=== PATIENT | female | born 2000 | race Caucasian/White ===

== ENCOUNTER 2018-02-19 15:36 | Emergency (ER) | payer BC ==
[2018-02-19] MEDS ORDERED: NA CHLORIDE 0.9% 1,000 ML ONE (16:37)
[2018-02-19] MEDS ORDERED: KETOROLAC 30 MG/ML INJ ONE (16:37)
[2018-02-19 17:54] LABS: Absolute Lymphocytes (CBC) 1.5 K/uL (0.7-4.9); Absolute Monocytes 0.7 K/uL (0.1-1.3); Absolute Neutrophil 13.4 K/uL (1.8-8.0); Basophils % 0.4 % (0-1.3); Eosinophils % 0.3 % (0-4.4); Hematocrit 41.3 % (36.0-45.0); Lymphocytes % 9.7 % (15.3-44.8); MCH 26.4 pg (27.0-35.0); MCV 79.8 fL (80-100); MPV 8.8 fL (7.6-11.3); Monocytes % 4.1 % (3.3-12.3); RBC Red Blood Cell Count 5.18 M/uL (3.86-4.86)
[2018-02-19 17:57] LABS: Urine Blood NEGATIVE (NEG); Urine Glucose NEGATIVE (NEG); Urine Protein NEGATIVE (NEG); Urine pH 7.5 (5.0-7.0)
[2018-02-19 18:01] LABS: Urine Bacteria <20 /HPF (<20); Urine Culture Reflex Order NOT NEEDED; Urine Mucus 1+ /HPF (NONE SEEN); Urine RBC <5 /HPF (NONE SEEN)
[2018-02-19 18:13] LABS: ALT/SGPT 60 U/L (12-78); AST/SGOT 30 U/L (15-37); Albumin 4.3 g/dL (3.4-5.0); Alkaline Phosphatase 87 U/L (45-117); Amylase Level 51 U/L (25-115); BUN Blood Urea Nitrogen 12 mg/dL (7-18); Bicarbonate 26 mmol/L (21-32); Bilirubin Direct 0.1 mg/dL (0-0.2); Bilirubin Total 0.4 mg/dL (0.2-1.0); Glucose Level 95 mg/dL (74-106); Lipase 111 U/L (73-393); Potassium 3.5 mmol/L (3.5-5.1); Protein, Total 8.1 g/dL (6.4-8.2); Sodium Level 139 mmol/L (136-145)
--- NOTE | 2018-02-19 18:14 | RAD REPORT ---
EXAM DESCRIPTION: US - Transvaginal Study Probe - 02/19/2018 6:06 pm CLINICAL HISTORY: lower abdomen/pelvic pain Pelvic pain. COMPARISON: No comparisons FINDINGS: The uterus is normal in size, shape and echotexture. The uterus measures 7.0 x 5.1 x 4.0 c m. The fundal endometrium appears to contain an IUD device although is somewhat poorly visualized. Endom etrial stripe is normal in thickness. Both ovaries are normal in size, shape and echotexture. The right ovary measures 3.9 x 3.5 x 2.2 cm. The left ovary measures 2.8 x 2.9 x 1.1 cm. No ovarian or parovarian lesions. No adnexal masses. Normal Doppler blood flow was demonstrated to both ovaries. Mild pelvic free fluid. IMPRESSION: IUD is suspected to be within the fundal endometrium although it is somewhat poorly visu alized.Otherwise, negative study.
--- NOTE | 2018-02-19 19:03 | RAD REPORT ---
EXAM DESCRIPTION: CTAbdomen Pelvis W Contrast - 02/19/2018 6:39 pm CLINICAL HISTORY: Abdominal pain. lower abdomen pain COMPARISON: No comparisons TECHNIQUE: Biphasic CT imaging of the abdomen and pelvis was performed with 100 ml non-ionic IV cont rast. All CT scans are performed using dose optimization technique as appropriate and may include automated exposure control or mA/KV adjustment according to patient size. FINDINGS: The lung bases are clear. The liver, spleen, pancreas, adrenal glands and kidneys are within normal limits. No bowel obstruction, free air, free fluid or abscess. The appendix is normal. No evidence of signi ficant lymphadenopathy. The uterus appears to contain an IUD in the fundal region. Mild pelvic free fluid is seen. Gynecologi c structures appear somewhat boggy/edematous. IMPRESSION: Mild pelvic free fluid is seen with a somewhat boggy appearance to the gynecologic struc tures. Clinical correlation for possible pelvic inflammation/ infection is advised.
--- NOTE | 2018-02-19 19:18 | ER ---
Nurse's Notes [facility] Name: Marisol Urias Age: 17 yrs Sex: Female : 2000 Arrival Date: 02/19/2018 Time: 15:37 Bed 30 Private MD: Gareth Terrell V Diagnosis: Female pelvic inflammatory disease, unspecified Presentation: 02/19 16:06 Transition of care: patient was not received from another setting of care. Onset of hb symptoms was February 19, 2018. 16:06 Method Of Arrival: Ambulatory hb 16:06 Presenting complaint: Patient states: Abdominal cramping and pelvic pain 8/10 after hb intercourse this morning. Pt also reports intermittent abdominal cramping ever since she had her IUD placed 1 month ago. Denies vaginal bleeding. Risk Assessment: Do you want to hurt yourself or someone else? Patient reports no desire to harm self or others. Initial Sepsis Screen: Does the patient meet any 2 criteria? No. Patient's initial sepsis screen is negative. Does the patient have a suspected source of infection? No. Patient's initial sepsis screen is negative. Care prior to arrival: None. 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 - Social history:: Smoking status: Patient/guardian denies using tobacco. - Ebola Screening: : No symptoms or risks identified at this time. Screenin:12 Abuse screen: Denies threats or abuse. Denies injuries from another. Nutritional hb screening: No deficits noted. Tuberculosis screening: No symptoms or risk factors identified. Fall Risk None identified. Assessment: 16:30 General: Appears in no apparent distress. comfortable, well groomed, Behavior is calm, ph cooperative, appropriate for age, Denies fever, feeling ill. Pain: Complains of pain in suprapubic area, right lower quadrant and left lower quadrant. Neuro: Level of Consciousness is awake, alert, obeys commands, Oriented to person, place, time, situation. Cardiovascular: Capillary refill < 3 seconds Patient's skin is warm and dry. Respiratory: Airway is patent Respiratory effort is even, unlabored, Respiratory pattern is regular, symmetrical. GI: Abdomen is round non-distended, Bowel sounds present X 4 quads. Reports lower abdominal pain, Patient currently denies diarrhea, nausea, vomiting. : Reports cramping, in bilateral lower quadrant(s) Denies burning with urination, discharge, vaginal bleeding. Derm: Skin is intact, is healthy with good turgor, Skin is pink, warm \T\ dry. Musculoskeletal: Circulation, motion, and sensation intact. Range of motion: intact in all extremities. 17:20 Reassessment: Patient appears in no apparent distress at this time. Patient and/or ph family updated on plan of care and expected duration. Pain level reassessed. Patient is alert, oriented x 3, equal unlabored respirations, skin warm/dry/pink. ERP at bedside for pelvic exam, pt tolerated well. 18:35 Reassessment: Patient appears in no apparent distress at this time. Patient and/or ph family updated on plan of care and expected duration. Pain level reassessed. Patient is alert, oriented x 3, equal unlabored respirations, skin warm/dry/pink. Pt resting quietly, reports that pain has improved to 6/10, awaiting CT results. Vital Signs: 16:11 BP 125 / 83; Pulse 94; Resp 16; Temp 97.8; Pulse Ox 100% on R/A; Pain 8/10; hb 17:30 BP 119 / 70; Pulse 87; Resp 18; Pulse Ox 99% on R/A; Pain 8/10; ph 18:30 BP 122 / 68; Pulse 86; Resp 18; Pulse Ox 99% on R/A; Pain 6/10; ph 19:36 BP 120 / 70; Pulse 87; Resp 17; Pulse Ox 99% ; kr2 ED Course: 15:37 Patient arrived in ED. sb2 15:38 Gareth Terrell MD is Private Physician. sb2 16:01 Teodoro Joseph PA is PHCP. cp 16:01 Phoenix Sun MD is Attending Physician. cp 16:11 Triage completed. hb 16:11 Arm band placed on right wrist. hb 16:12 Patient has correct armband on for positive identification. Bed in low position. Call light in reach. Side rails up X 1. 16:24 Ximena Ayala, RN is Primary Nurse. ph 17:20 Assist provider with pelvic exam: Set up pelvic tray. Performed by Teodoro HILLMAN ph Specimens sent to lab. Patient tolerated well. 17:30 Inserted saline lock: 20 gauge in right antecubital area, using aseptic technique. ph Blood collected. 18:07 US Transvaginal Study (Probe) In Process Unspecified. EDMS 18:32 Patient moved to MD via wheelchair. jj2 18:39 CT Abd/Pelvis - W/Contrast In Process Unspecified. EDMS 19:35 IV discontinued, intact, bleeding controlled, No redness/swelling at site. Pressure kr2 dressing applied. Administered Medications: 17:35 Drug: NS 0.9% 1000 ml Route: IV; Rate: 1 bolus; Site: right antecubital; ph 18:58 Follow up: Response: No adverse reaction; IV Status: Completed infusion ph 17:35 Drug: TORadol 30 mg Route: IVP; Site: right antecubital; ph 18:58 Follow up: Response: No adverse reaction; Pain is decreased ph 19:29 Drug: Rocephin 1 grams Route: IV; Rate: calculated rate; Site: right antecubital; kr2 19:35 Follow up: Response: No adverse reaction; IV Status: Completed infusion kr2 19:29 Drug: Zithromax 1 grams Route: PO; kr2 19:35 Follow up: Response: Medication administered at discharge. kr2 Outcome: 19:18 Discharge ordered by MD. cp 19:34 Discharged to home ambulatory, with family. kr2 19:34 Condition: good 19:34 Discharge instructions given to patient, family, Instructed on discharge instructions, follow up and referral plans. medication usage, Demonstrated understanding of instructions, follow-up care, medications, Prescriptions given X 4. 19:37 Patient left the ED. kr2 Signatures: Dispatcher [employer] EDMS Antonoi Lagunas jXimena Cheney, RN RN ph Teodoro Joseph PA PA cp Tamra Hernandez RN RN Ishan Santana Karey, RN RN kr2 Aletha Kearns sb2 Corrections: (The following items were deleted from the chart) 16:36 16:[address] nj nj
--- NOTE | 2018-02-19 19:19 | EDPHYS ---
Physician Documentation [facility] Name: Marisol Urias Age: 17 yrs Sex: Female : 2000 Arrival Date: 02/19/2018 Time: 15:37 Bed 30 Private MD: Gareth Terrell V ED Physician Phoenix Sun HPI: 02/19 16:19 This 17 yrs old Female presents to ER via Ambulatory with complaints of cp Abdominal Pain, Pelvic Pain. 16:19 The patient presents with abdominal pain in the lower abdomen. Onset: The cp symptoms/episode began/occurred today, started after intercourse. The symptoms radiate to Associated signs and symptoms: Pertinent positives: fever, vaginal discharge, Pertinent negatives: constipation, diarrhea, dysuria, vomiting. 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 - Social history:: Smoking status: Patient/guardian denies using tobacco. - Ebola Screening: : No symptoms or risks identified at this time. ROS: 16:25 Constitutional: Negative for body aches, chills, fever, poor PO intake. cp 16:25 Eyes: Negative for injury, pain, redness, and discharge. cp 16:25 Cardiovascular: Negative for chest pain, palpitations. 16:25 Respiratory: Negative for cough, shortness of breath, wheezing. 16:25 Abdomen/GI: Positive for abdominal pain, nausea, of the right lower quadrant and left lower quadrant, Negative for vomiting, diarrhea, constipation, anorexia, black/tarry stool, rectal bleeding. 16:25 Back: Positive for radiated pain. 16:25 : Positive for pelvic pain, vaginal discharge, Negative for urinary symptoms, vaginal bleeding. 16:25 All other systems are negative. Exam: 17:17 Head/Face: Normocephalic, atraumatic. cp 17:17 Constitutional: The patient appears in no acute distress, alert, awake, non-toxic, well developed, well nourished. 17:17 Eyes: Periorbital structures: appear normal, Conjunctiva: normal, no exudate, no injection, Sclera: no appreciated abnormality, Lids and lashes: appear normal, bilaterally. 17:17 ENT: External ear(s): are unremarkable, Nose: is normal, Mouth: Lips: moist, Oral mucosa: pink and intact, moist, Posterior pharynx: is normal, airway is patent, no erythema, no exudate. 17:17 Neck: ROM/movement: is normal, is supple, without pain, no range of motions limitations, no nuchal rigidity. 17:17 Chest/axilla: Inspection: normal, Palpation: is normal, no crepitus, no tenderness. 17:17 Cardiovascular: Rate: normal, Rhythm: regular. 17:17 Respiratory: the patient does not display signs of respiratory distress, Respirations: normal, no use of accessory muscles, no retractions, no splinting, no tachypnea, labored breathing, is not present, Breath sounds: are clear throughout, no decreased breath sounds, no stridor, no wheezing. 17:17 Abdomen/GI: Inspection: abdomen appears normal, Bowel sounds: active, all quadrants, Palpation: soft, in all quadrants, moderate abdominal tenderness, in the right lower quadrant and left lower quadrant, rebound tenderness, is not appreciated, voluntary guarding, is elicited in the right lower quadrant and left lower quadrant. 17:17 : Pelvic Exam: External exam: is normal, Speculum exam: no bleeding is noted, no cervicitis, os that is closed, IUD string noted, bimanual exam reveals cervical motion tenderness, uterine tenderness, right adnexal tenderness, left adnexal tenderness, the nurse was present for the exam, Sexual behavior: the patient is sexually active, and reports a single partner. 17:17 Skin: cellulitis, is not appreciated, no rash present. Vital Signs: 16:11 BP 125 / 83; Pulse 94; Resp 16; Temp 97.8; Pulse Ox 100% on R/A; Pain 8/10; hb 17:30 BP 119 / 70; Pulse 87; Resp 18; Pulse Ox 99% on R/A; Pain 8/10; ph 18:30 BP 122 / 68; Pulse 86; Resp 18; Pulse Ox 99% on R/A; Pain 6/10; ph 19:36 BP 120 / 70; Pulse 87; Resp 17; Pulse Ox 99% ; kr2 MDM: 16:01 Patient medically screened. cp 17:00 Differential diagnosis: UTI, Menorrhagia, Pelvic Inflammatory Disease, Pyelonephritis, cp Tubal Ovarian Abcess, urinary tract infection. 19:12 Data reviewed: vital signs, nurses notes, lab test result(s), radiologic studies, CT cp scan, ultrasound. 19:16 Counseling: I had a detailed discussion with the patient and/or guardian regarding: the cp historical points, exam findings, and any diagnostic results supporting the discharge/admit diagnosis, lab results, radiology results, the need for outpatient follow up, an OB/Gyne specialist, to return to the emergency department if symptoms worsen or persist or if there are any questions or concerns that arise at home. 19:16 Response to treatment: the patient's symptoms have mildly improved after treatment, and cp as a result, I will discharge patient. Special discussion: Based on the patient's Hx, exam, and Dx evaluation, there is no indication for emergent surgery or inpatient Tx. It is understood by the patient/guardian that if the Sx's persist or worsen they need to return immediately for re-evaluation. 02/19 16:22 Order name: Amylase, Serum; Complete Time: 18:25 cp 02/19 16:22 Order name: Basic Metabolic Panel; Complete Time: 18:25 cp 02/19 16:22 Order name: CBC with Diff; Complete Time: 18:25 cp 02/19 18:25 Interpretation: Normal except: WBC 15.7; RBC 5.18; MCV 79.8; MCH 26.4; MARY% 85.5; LYM% cp 9.7; NEUT A 13.4. 02/19 16:22 Order name: Creatinine for Radiology; Complete Time: 18:25 cp 02/19 16:22 Order name: Hepatic Function; Complete Time: 18:25 cp 02/19 19:21 Interpretation: Normal except: GLOB 3.8. cp 02/19 16:22 Order name: Lipase; Complete Time: 18:25 cp 02/19 16:22 Order name: Urine Microscopic Only; Complete Time: 19:21 cp 02/19 16:22 Order name: CT Abd/Pelvis - W/Contrast; Complete Time: 19:11 cp 02/19 16:22 Order name: GC (GONORR/CHLAMYDIA) Probe cp 02/19 16:22 Order name: Wet Prep 02/19 17:30 Order name: US Transvaginal Study (Probe); Complete Time: 18:25 02/19 17:51 Order name: Urine Dipstick--Ancillary (enter results); Complete Time: 18:07 02/19 18:07 Interpretation: Normal except: UPH 7.5. 02/19 17:51 Order name: Urine --Ancillary (enter results); Complete Time: 18:07 02/19 18:07 Interpretation: Reviewed. 02/19 16:22 Order name: Urine Test (obtain specimen); Complete Time: 16:25 02/19 16:22 Order name: IV Saline Lock; Complete Time: 17:58 02/19 16:22 Order name: Labs collected and sent; Complete Time: 17:58 cp 02/19 16:22 Order name: Urine Dipstick-Ancillary (obtain specimen); Complete Time: 16:25 02/19 16:22 Order name: Pelvic Exam Setup; Complete Time: 17:58 cp Administered Medications: 17:35 Drug: NS 0.9% 1000 ml Route: IV; Rate: 1 bolus; Site: right antecubital; ph 18:58 Follow up: Response: No adverse reaction; IV Status: Completed infusion ph 17:35 Drug: TORadol 30 mg Route: IVP; Site: right antecubital; ph 18:58 Follow up: Response: No adverse reaction; Pain is decreased ph 19:29 Drug: Rocephin 1 grams Route: IV; Rate: calculated rate; Site: right antecubital; kr2 19:35 Follow up: Response: No adverse reaction; IV Status: Completed infusion kr2 19:29 Drug: Zithromax 1 grams Route: PO; kr2 19:35 Follow up: Response: Medication administered at discharge. kr2 Disposition: 02/20 07:04 Co-signature as Attending Physician, Phoenix Sun MD. rn Disposition: 02/19/18 19:18 Discharged to Home. Impression: Female pelvic inflammatory disease, unspecified. - Condition is Stable. - Discharge Instructions: Pelvic Inflammatory Disease, Pelvic Pain, Female. - Prescriptions for Naprosyn 500 mg Oral Tablet - take 1 tablet by ORAL route 2 times per day take with food; 20 tablet. Tylenol- Codeine #3 300-30 mg Oral Tablet - take 2 tablets by ORAL route every 6 hours As needed no driving while taking medication; 15 tablet. Doxycycline Hyclate 100 mg Oral Tablet - take 1 tablet by ORAL route every 12 hours; 20 tablet. Metronidazole 500 mg Oral Tablet - take 1 tablet by ORAL route every 8 hours; 30 tablet. - Medication Reconciliation Form, Thank You Letter, Antibiotic Education, Prescription Opioid Use form. - Follow up: Private Physician; When: primary FINANCIAL PLANNING ADVISOR; Reason: Recheck today's complaints, tomorrow as scheduled. - Problem is new. - Symptoms have improved. Signatures: Dispatcher [employer] EDMS Phoenix Sun MD MD rn Hall, Patricia, RN RN ph Teodoro Joseph PA PA cp Tamra Hernandez RN RN Meli Knox RN RN kr2 Corrections: (The following items were deleted from the chart) 02/19 19:37 19:18 02/19/2018 19:18 Discharged to Home. Impression: Female pelvic inflammatory kr2 disease, unspecified. Condition is Stable. Forms are Medication Reconciliation Form, Thank You Letter, Antibiotic Education, Prescription Opioid Use. Follow up: Private Physician; When: primary FINANCIAL PLANNING ADVISOR; Reason: Recheck today's complaints, tomorrow as scheduled. Problem is new. Symptoms have improved. cp
[2018-02-19] MEDS ORDERED: AZITHROMYCIN 250 MG TAB ONE (19:27)
[2018-02-19] MEDS ORDERED: CEFTRIAXONE/SWI 1gm 1 GM/10 ML SYR ONE (19:27)
[2018-02-23 07:53] LABS: C.trachomatis RNA,TMA Not Detected (Not Detected)
== END 2018-02-19 19:37 | disposition home or self-care (01) ==
LOC: ER 15:36
DX: N73.9 Female pelvic inflammatory disease, unspecified (principal); F41.8 Other specified anxiety disorders
CPT/HCPCS: 36415; 74177; 76830; 80048; 80076; 81003; 81015; 81025; 82150; 83690; 85025; 87210; 87490; 87590; 96361; 96374; 96375; 99284; J0696; J7030; Q9967